=== PATIENT | female | born 1995 | race Caucasian/White ===

== ENCOUNTER 2016-12-07 16:49 | Emergency (ER) | payer MEDICAID ==
[~2016-12-07] VITALS: Ht 152.4 cm; Wt 91.0 kg
[2016-12-07] MEDS ORDERED: IBUPROFEN 600MG TABLET PO ONE (18:15)
[2016-12-07 18:22] VITALS: BP 137/77
== END 2016-12-07 20:54 | disposition home or self-care (01) ==
LOC: ER 16:52
DX: S93.402A Sprain of unspecified ligament of left ankle, initial encounter (principal); W01.0XXA Fall on same level from slipping, tripping and stumbling without subsequent striking against object, initial encounter; Y93.89 Activity, other specified; Y92.488 Other paved roadways as the place of occurrence of the external cause
CPT/HCPCS: 29515; 73610; 81025; 99284